=== PATIENT | female | born 1965 | race Caucasian/White ===

== ENCOUNTER → 2017-01-17 | Outpatient (CLI) | payer OTHER ==
--- NOTE | 2017-01-17 14:30 | MAMMOGRAPHY REPORT ---
BILATERAL DIGITAL DIAGNOSTIC MAMMOGRAM TOMOSYNTHESIS WITH CAD: 01/17/2017 CLINICAL HISTORY: 12 month follow-up of left breast asymmetry. The patient is currently asymptomati c. TECHNIQUE: Breast tomosynthesis in addition to standard 2D mammography was performed. Current study was also evaluated with a Computer Aided Detection (CAD) system. Bilateral CC and MLO 2-D and jameson synthesis views were obtained. COMPARISON: Comparison is made to exams dated: 04/10/2015 ultrasound, 04/10/2015 mammogram, 09/19/2014 ultrasound, 09/19/2014 mammogram, 01/17/2014 mammogram, and 02/14/2014 mammogram - [facility]. BREAST COMPOSITION: The tissue of both breasts is heterogeneously dense, which may obscure small ma sses. FINDINGS: There are no suspicious masses, calcifications, or areas of architectural distortion note d in either breast. There has been no significant interval change compared to prior exams. The pre viously described asymmetry seen within the left lateral posterior breast is stable to less prominen t compared to the 01/17/2014 exam, and is considered benign given long-term stability. This has the appearance of normal fibroglandular tissue on the tomosynthesis images. IMPRESSION: ACR BI-RADS CATEGORY 2: BENIGN There is no mammographic evidence of malignancy in either breast. A 1 year screening mammogram is re commended. The patient has been verbally notified of the results. Approximately 10% of breast cancers are not detected with mammography. A negative mammographic repor t should not delay biopsy if a clinically suggestive mass is present. Kirsty Edwards M.D. ah/:01/17/2017 09:20:10 Meter Installer And Remover: Lorelei HOWELL(R)(Shira), [facility] letter sent: Normal 1/2 BI-RADS Code: ACR BI-RADS Category 2: Benign
== END | disposition home or self-care (01) ==
LOC: C.MAMM 08:52
PROVIDERS: ATTEND Family Medicine
DX: N64.89 Other specified disorders of breast (principal)